=== PATIENT | female | born 1980 | race Caucasian/White ===

== ENCOUNTER 2021-02-12 13:09 | Emergency (ER) | payer OTHER ==
[~2021-02-12] VITALS: Ht 170.2 cm; Wt 117.9 kg
[2021-02-12] MEDS ORDERED: MEDROL 4MG DOSEP4 MG PO (17:20)
[2021-02-12] MEDS ORDERED: NAPROXEN500 MG PO (17:20)
[2021-02-12 17:50] LABS: BILIRUBIN NEGATIVE (NEGATIVE); BLOOD NEGATIVE Ery/uL (NEGATIVE); CLARITY HAZY (CLEAR); COLOR YELLOW (YELLOW); GLUCOSE (U) NORMAL (NORMAL); LEUKOCYTES NEGATIVE Leu/uL (NEGATIVE); NITRITE POSITIVE (NEGATIVE); PROTEIN NEGATIVE (NEGATIVE); UROBILINOGEN 0.2 mg/dL (0.2-1.0)
[2021-02-12] MEDS ORDERED: MACROBID100 MG PO (17:57)
[2021-02-12 17:59] LABS: AMPHETAMINES NEGATIVE (NEGATIVE); BARBITURATES NEGATIVE (NEGATIVE); ECSTASY (MDMA) NEGATIVE (NEGATIVE); MARIJUANA (THC) POSITIVE (NEGATIVE); METHADONE NEGATIVE (NEGATIVE); OPIATES POSITIVE (NEGATIVE); OXYCODONE NEGATIVE (NEGATIVE)
[2021-02-12 18:01] LABS: BACTERIA 4+; URINARY RBC RARE; URINARY WBC RARE
[2021-03-20] MEDS ORDERED: NEURONTIN300 MG PO (16:46)
== END 2021-02-12 17:55 | disposition home or self-care (01) ==
LOC: FER 13:09
PROVIDERS: Emergency Medicine
DX: M51.36 Other intervertebral disc degeneration, lumbar region (principal); I10 Essential (primary) hypertension; F17.200 Nicotine dependence, unspecified, uncomplicated; Z98.890 Other specified postprocedural states; Z88.1 Allergy status to other antibiotic agents
CPT/HCPCS: 72131; 80305; 81001; 96372; J1170; J1885